=== PATIENT | female | born 1980 | race Caucasian/White ===

== ENCOUNTER 2016-04-06 19:46 | Emergency (ER) | payer OTHER ==
[2016-04-06] MEDS ORDERED: IPRATROPIUM/ALBUTEROL (0.5MG/3MG) NEB INH ONE (20:25)
[2016-04-06] MEDS ORDERED: KETOROLAC 30 MG/ML VIAL IVP ONE (20:29)
[2016-04-06 20:40] LABS: HEMATOCRIT 38.3 % (35.0-47.0); MEAN CORPUSCULAR HEMOGLOBIN 32.3 pg (27-33); MEAN CORPUSCULAR HGB CONC 33.9 g/dl (32-36); MEAN PLATELET VOLUME 9.1 fl (7.4-10.4); PLATELET COUNT 359 K/uL (130-400); RED BLOOD COUNT 4.03 M/uL (3.80-5.40); RED CELL DISTRIBUTION WIDTH 12.9 % (11.5-14.5); WHITE BLOOD COUNT W/O DIFF 14.4 K/uL (4.2-12.2)
[2016-04-06 20:51] LABS: ANION GAP 14.2 (7-16); BLOOD UREA NITROGEN 10 mg/dL (7-17); CARBON DIOXIDE 25.8 mmol/L (22-30); CREATININE 0.8 mg/dL (0.52-1.04); EST GLOMERULAR FILTRATION RATE > 60 ml/min; GLUCOSE,RANDOM 82 mg/dL (70-110)
[2016-04-06 21:08] LABS: TROPONIN I < 0.012 ng/mL (0.00-0.034)
--- NOTE | 2016-04-06 21:52 | Emergency Department Record ---
History of Present Illness - General Chief Complaint: Difficulty Breathing Stated Complaint: SOB Time Seen by Provider: 04/06/16 20:09 Source: Patient Mode of Arrival: Ambulatory Limitations: No limitations - History of Present Illness Initial Comments: pt has pain in her l upper chest with breathing and with icoughing. pt has not had anything like this before. pt has had a uri recently. MD Complaint: Chest pain, Pain with inspiration Onset/Timin -: Hour(s) Severity: Mild Severity scale (1-10): 2 Quality: Other Consistency: Other Improves With: Rest Worsens With: Other Known History Of: Other Context: Other Associated Symptoms: Denies other symptoms Treatments Prior to Arrival: None - Related Data Home Medications Medication Instructions Recorded Confirmed Last Taken Dextroamphetamine/Amphetamine 20 mg PO DAILY 11/16/13 04/06/16 03/30/15 [Adderall 20 mg Tablet] Natalizumab [Tysabri] 300 mg IV ASDIR 11/16/13 04/06/16 03/04/15 Cholecalciferol (Vitamin D3) 5,000 unit PO DAILY 10/07/14 04/06/16 03/30/15 [Vitamin D3] Dextroamphetamine/Amphetamine 5 mg PO QPM 04/06/16 04/06/16 Unknown [Dextroamp-Amphetamine 5 mg Tab] Multivitamin [Multi-Vitamin Daily] 1 each PO DAILY 04/06/16 04/06/16 Unknown Previous Rx's Medication Instructions Recorded Epinephrine [Epipen] 0.3 mg IM .NOW PRN #1 syr 11/16/13 Meclizine HCl [Antivert] 25 mg PO Q8H #14 tablet 03/30/15 Azithromycin [Zithromax] 250 mg PO DAILY #4 tab 04/06/16 Allergies Allergy/AdvReac Type Severity Reaction Status Date / Time levofloxacin [From Levaquin] Allergy HYPERSENSIT Verified 03/30/15 17:21 IVITY peanut Allergy DIFFICULTY Verified 03/30/15 17:21 BREATHING Travel Screening - Travel/Exposure Within Last 30 Days Have you traveled within the last 30 days?: No - Travel/Exposure Within Last Year Have you traveled outside the [place] in the last year?: No - Additonal Travel Details Have you been exposed to anyone with a communicable illness?: No Review of Systems Reviewed: No additional complaints except as noted below Constitutional: Reports: As per HPI. Denies: Chills, Fever, Malaise, Night sweats, Weakness, Weight change Eyes: Reports: As per HPI. Denies: Eye discharge, Eye pain, Photophobia, Vision change ENT: Reports: As per HPI. Denies: Congestion, Dental pain, Ear pain, Epistaxis , Hearing loss, Throat pain Respiratory: Reports: As per HPI. Denies: Cough, Dyspnea, Hemoptysis, Stridor, Wheezes Cardiovascular: Reports: As per HPI. Denies: Arrhythmia, Chest pain, Dyspnea on exertion, Edema, Murmurs, Orthopnea, Palpitations, Paroxysmal nocturnal dyspnea, Rheumatic Fever, Syncope Endocrine: Reports: As per HPI. Denies: Fatigue, Heat or cold intolerance, Polydipsia, Polyuria Gastrointestinal: Reports: As per HPI. Denies: Abdominal pain, Constipation, Diarrhea, Hematemesis, Hematochezia, Melena, Nausea, Vomiting Genitourinary: Reports: As per HPI. Denies: Abnormal menses, Discharge, Dyspareunia, Dysuria, Frequency, Hematuria, Incontinence, Retention, Urgency Musculoskeletal: Reports: As per HPI. Denies: Arthralgia, Back pain, Gout, Joint swelling, Myalgia, Neck pain Skin: Reports: As per HPI. Denies: Bruising, Change in color, Change in hair/ nails, Lesions, Pruritus, Rash Neurological: Reports: As per HPI. Denies: Abnormal gait, Confusion, Headache, Numbness, Paresthesias, Seizure, Tingling, Tremors, Vertigo, Weakness Psychiatric: Reports: As per HPI. Denies: Anxiety, Auditory hallucinations, Depression, Homicidal thoughts, Suicidal thoughts, Visual hallucinations Hematological/Lymphatic: Reports: As per HPI. Denies: Anemia, Blood Clots, Easy bleeding, Easy bruising, Swollen glands Past Medical History - SOCIAL HISTORY Smoking Status: Never smoker Alcohol Use: Occassional Alcohol Use Comment: WINE ONCE A WEEK Drug Use: None - RESPIRATORY Hx Respiratory Disorders: No - CARDIOVASCULAR Hx Cardio Disorders: No - NEURO Hx Neuro Disorders: Yes Hx Neuropathy: Yes (Multiple Schlerosis dx'd 2005) - GI Hx GI Disorders: No - Hx Genitourinary Disorders: No - ENDOCRINE Hx Endocrine Disorders: No - MUSCULOSKELETAL Hx Musculoskeletal Disorders: No - PSYCH Hx Psych Problems: Yes Hx Depression: Yes - HEMATOLOGY/ONCOLOGY Hx Hematology/Oncology Disorders: No Family Medical History Any Significant Family History?: No Physical Exam - General General Appearance: Alert, Oriented x3, Cooperative, Mild distress - Head Head exam: Normal inspection - Eye Eye exam: Normal appearance, PERRL, EOMI Pupils: Normal accommodation - ENT ENT exam: Normal exam, Mucous membranes moist, Normal external ear exam, Normal orophraynx Ear exam: Normal external inspection. negative: External canal tenderness Nasal Exam: Normal inspection. negative: Discharge, Sinus tenderness Mouth exam: Normal external inspection, Tongue normal Teeth exam: Normal inspection. negative: Dental caries Throat exam: Normal inspection. negative: Tonsillar erythema, Tonsillar exudate - Neck Neck exam: Normal inspection, Full ROM. negative: Tenderness - Respiratory Respiratory exam: Normal lung sounds bilaterally. negative: Respiratory distress - Cardiovascular Cardiovascular Exam: Regular rate, Normal rhythm, Normal heart sounds - GI/Abdominal GI/Abdominal exam: Soft, Normal bowel sounds. negative: Tenderness - Rectal Rectal exam: Deferred - exam: Deferred - Extremities Extremities exam: Normal inspection, Full ROM, Normal capillary refill. negative: Tenderness - Back Back exam: Reports: Normal inspection, Full ROM. Denies: Muscle spasm, Rash noted, Tenderness - Neurological Neurological exam: Alert, CN II-XII intact, Normal gait, Oriented X3 - Psychiatric Psychiatric exam: Normal affect, Normal mood - Skin Skin exam: Dry, Intact, Normal color, Warm Course Vital Signs 04/06/16 04/06/16 04/06/16 19:49 20:25 21:19 Temperature 98.2 F Pulse Rate 81 80 Pulse Rate [ 72 Pulse Ox Probe] Respiratory 20 20 20 Rate Blood Pressure 122/73 Blood Pressure 144/64 [Left Arm] Pulse Ox 100 95 04/06/16 21:23 Temperature Pulse Rate Pulse Rate [ 78 Pulse Ox Probe] Respiratory 20 Rate Blood Pressure Blood Pressure 121/75 [Left Arm] Pulse Ox 96 Medical Decision Making - Management Options MDM Management: Additional Work-up Planned (e.g. ADM/Transfer/OP Study) - Data Complexity MDM Data: Labs Ordered and/or Reviewed, X-Ray Ordered and/or Reviewed, EKG Ordered and/or Reviewed - Lab Data Result diagrams: 04/06/16 20:35 04/06/16 20:35 Lab Results 04/06/16 04/06/16 04/06/16 Range/Units 20:35 20:35 20:35 WBC 14.4 H (4.2-12.2) K/uL RBC 4.03 (3.80-5.40) M/uL Hgb 13.0 (11.6-16.0) gm/dl Hct 38.3 (35.0-47.0) % MCV 95.0 (81-97) fl MCH 32.3 (27-33) pg MCHC 33.9 (32-36) g/dl RDW 12.9 (11.5-14.5) % Plt Count 359 (130-400) K/uL MPV 9.1 (7.4-10.4) fl Neutrophils % 55.0 (47-80) % Lymphocytes % 31.0 (16-45) % Monocytes % 7.0 (0-9) % Eosinophils % 7.0 H (0-6) % Basophils % Not Reportable D-Dimer 0.27 (0-0.59) mg/L FEU Sodium 139 (136-145) mmol/L Potassium 4.2 (3.5-5.1) mmol/L Chloride 99 (98-107) mmol/L Carbon Dioxide 25.8 (22-30) mmol/L Anion Gap 14.2 (7-16) BUN 10 (7-17) mg/dL Creatinine 0.8 (0.52-1.04) mg/dL Estimated GFR > 60 ml/min Random Glucose 82 (70-110) mg/dL Calcium 8.9 (8.5-10.1) mg/dL Troponin I < 0.012 (0.00-0.034) ng/mL NT-Pro-B Natriuret Pep 132.00 H (<125) pg/mL - EKG Data -: EKG Interpreted by Vt EKG: No Acute Changes - Radiology Data Radiology results: Report reviewed, Image reviewed Disposition Disposition: Discharge Clinical Impression: Bronchitis, Pleurisy Disposition: Home, Self-Care Condition: (1) Good Instructions: Acute Bronchitis (ED), Pleurisy (ED) Additional Instructions: follow up with family doctor. return sooner if worse. Prescriptions: Azithromycin [Zithromax] 250 mg PO DAILY #4 tab
[2016-04-06] MEDS ORDERED: AZITHROMYCIN 500 MG TABLET PO ONE (22:35)
--- NOTE | 2016-04-10 05:32 | RADIOLOGY REPORT ---
EXAM: CHEST 2 VIEWS HISTORY: CHEST PAIN. TECHNIQUE: Chest two-view. COMPARISON: None. FINDINGS: The heart is not enlarged. Lungs and pleural spaces are clear. IMPRESSION: NO ACUTE CARDIOPULMONARY ABNORMALITY. JOB NUMBER: [id number] MTDD
== END 2016-04-06 22:44 | disposition home or self-care (01) ==
LOC: ER 19:46
DX: J20.9 Acute bronchitis, unspecified (principal); R09.1 Pleurisy; G35 Multiple sclerosis
CPT/HCPCS: 99284 ×2; 96374; 96375; 84484; 80048; 85379; 85027; 83880; 71020; 94640; 93005; 93010; J1885